=== PATIENT | female | born 1960 | race Caucasian/White ===

== ENCOUNTER 2017-08-06 18:39 | Inpatient (IN) ==
[2017-08-06] MEDS ORDERED: ASPIRIN 325 MG TABLET PO STA (19:03)
[2017-08-06] MEDS ORDERED: NITROGLYCERIN SL 0.4 MG TABLET SL PRN (19:03)
[2017-08-06] MEDS ORDERED: NITROGLYCERIN 2% OINT 1 INCH/GM PACK TOP STA (19:03)
[2017-08-06] MEDS ORDERED: MORPHINE 2 MG/1 ML SYRINGE IV PRN ×2 (19:03→21:57)
[2017-08-06] MEDS ORDERED: ENOXAPARIN 100 MG/ML SYRINGE SUBCUT STA (19:03)
[2017-08-06] MEDS ORDERED: ENOXAPARIN 100 MG/ML SYRINGE SUBCUT ONE (19:17)
[2017-08-06] MEDS ORDERED: NITROGLYCERIN 2% OINT 1 INCH/GM PACK TOP ONE (19:18)
[2017-08-06] MEDS ORDERED: ONDANSETRON 4 MG/2 ML VIAL ONE (19:18)
[2017-08-06] MEDS ORDERED: MORPHINE 2 MG/1 ML SYRINGE ONE (19:18)
[2017-08-06] MEDS ORDERED: ASPIRIN 325 MG TABLET ONE (19:18)
[2017-08-06] MEDS: ONDANSETRON 4 MG/2 ML VIAL IV PRN (19:20)
[2017-08-06 20:10] LABS: Apearance,Urine CLEAR (Clear); Basophils % 0.3 % (0.0-0.8); Bilirubin,Urine Negative (Negative); Blood, Urine Small mg/dL (Negative); Eosinophils # 0.1 10*3/uL (0.0-0.87); Eosinophils % 1.1 % (0.00-10.9); Glucose,Urine (UA) Negative (Negative); Hematocrit 37.4 VOL% (35.7-47.0); Hemoglobin 13.2 GM/DL (12.0-16.0); Immature Granulocytes % 0.3 %; Immature Granulocytes Absolute 0.03 #; Ketones,Urine Negative (Negative); Lymphocytes # 2.8 10*3/uL (1.4-4.0); Lymphocytes % 28.1 % (21.3-54.2); Mean Corpuscular HGB Conc 35.3 GM/DL (32-36); Mean Corpuscular Hemoglobin 32 PG (27-34); Mean Corpuscular Volume 91.9 FL (87-102); Mean Platelet Volume 8.6 FL (9.6-12.0); Monocytes # 0.6 10*3/uL (0.11-0.8); Monocytes % 6.1 % (1.7-12.7); Neutrophils # 6.5 10*3/uL (1.4-7.4); Neutrophils % 64.1 % (38.7-73.9); Nitrite,Urine Negative (Negative); Platelet Count 278 T/CUMM (130-400); Protein,Urine Negative; RBC,Urine <1 /HPF (0-4); Red Blood Count 4.07 MC/CUMM (3.8-5.5); Red Cell Distribution Width 13.9 % (9.3-17.3); Squamous Epithelial Cell,Urine Occasional /HPF (0-10); Urine Color Straw (Yellow); Urine Specific Gravity 1.003 (1.001-1.035); Urine Urobilinogen < 2.0 EU/DL (0.2-1.0); WBC,Urine 1 /HPF (0-6); White Blood Count 10.1 T/CUMM (4-12)
[2017-08-06 20:21] LABS: PT Patient Result 10.3 SECS
[2017-08-06 20:36] LABS: Albumin 4.2 G/DL (3.4-5.0); Bilirubin,Total 0.4 MG/DL (0.2-1.0); Calcium 9.1 MG/DL (8.5-10.1); Osmolality,Calculated 248.6 MOS/KG (273-304); Potassium 4.4 MMOL/L (3.5-5.1); Total Protein 7.4 G/DL (6.4-8.3)
[2017-08-06] MEDS ORDERED: ALUM/MAG/SIMETH/LIDO VISC 1:1 30 ML BOTTLE PO STA (21:50)
[2017-08-06] MEDS ORDERED: ONDANSETRON 4 MG/2 ML VIAL IV PRN (21:57)
[2017-08-06] MEDS ORDERED: ALUM/MAG/SIMETH/LIDO VISC 1:1 30 ML BOTTLE PO ONE (22:16)
[2017-08-06] MEDS ORDERED: MELOXICAM 7.5 MG TABLET PO PRN (23:18)
[2017-08-06] MEDS: CLORAZEPATE 7.5 MG TABLET PO SCH (23:54)
[2017-08-06] MEDS: LOVASTATIN 20 MG TABLET PO SCH (23:54)
[2017-08-06] MEDS: POTASSIUM CHLORIDE 20 MEQ TABLET PO SCH (23:54)
[2017-08-06] MEDS: ALLOPURINOL 300 MG TABLET PO SCH (23:54)
[2017-08-06] MEDS: SPIRONOLACTONE 100 MG TABLET PO SCH (23:54)
[2017-08-07] MEDS: SODIUM CHLORIDE 0.9% 1,000 ML IV SCH ×4 (00:04→23:00)
[2017-08-07 01:36] LABS: Basophils % 0.3 % (0.0-0.8); Eosinophils # 0.1 10*3/uL (0.0-0.87); Eosinophils % 1.3 % (0.00-10.9); Hematocrit 35.2 VOL% (35.7-47.0); Hemoglobin 12.2 GM/DL (12.0-16.0); Immature Granulocytes % 0.3 %; Immature Granulocytes Absolute 0.03 #; Lymphocytes # 2.8 10*3/uL (1.4-4.0); Lymphocytes % 31.9 % (21.3-54.2); Mean Corpuscular HGB Conc 34.7 GM/DL (32-36); Mean Corpuscular Hemoglobin 32 PG (27-34); Mean Corpuscular Volume 92.1 FL (87-102); Mean Platelet Volume 8.8 FL (9.6-12.0); Monocytes # 0.6 10*3/uL (0.11-0.8); Monocytes % 6.7 % (1.7-12.7); Neutrophils # 5.1 10*3/uL (1.4-7.4); Neutrophils % 59.5 % (38.7-73.9); Platelet Count 280 T/CUMM (130-400); Red Blood Count 3.82 MC/CUMM (3.8-5.5); Red Cell Distribution Width 13.8 % (9.3-17.3); White Blood Count 8.6 T/CUMM (4-12)
[2017-08-07] MEDS ORDERED: LISINOPRIL 20 MG TABLET PO SCH (09:00)
[2017-08-07] MEDS ORDERED: Atomoxetine Hcl [Strattera] 80 MG PO SCH (09:00)
[2017-08-07 09:53] LABS: Calcium 9.1 MG/DL (8.5-10.1); Osmolality,Calculated 255.2 MOS/KG (273-304); Potassium 4.2 MMOL/L (3.5-5.1)
[2017-08-07 09:54] LABS: Risk Ratio 4.4; VLDL CHOLESTEROL 26.6 MG/DL
[2017-08-07] MEDS: POTASSIUM CHLORIDE 20 MEQ TABLET PO SCH (10:04)
[2017-08-07] MEDS: SPIRONOLACTONE 100 MG TABLET PO SCH (10:04)
[2017-08-07] MEDS: DULoxetine 30 MG CAPSULE PO SCH ×2 (10:04→15:02)
[2017-08-07] MEDS: CHOLECALCIFEROL 1,000 UNIT TABLET PO SCH (10:04)
[2017-08-07] MEDS: PANTOPRAZOLE 40 MG TABLET PO SCH (10:04)
[2017-08-07] MEDS: ALLOPURINOL 300 MG TABLET PO SCH ×2 (10:05→21:18)
[2017-08-07] MEDS: LEVOTHYROXINE 50 MCG TABLET PO SCH (10:05)
[2017-08-07] MEDS: CLORAZEPATE 7.5 MG TABLET PO SCH ×2 (10:05→23:00)
[2017-08-07] MEDS: LOSARTAN 50 MG TABLET PO SCH (10:05)
[2017-08-07] MEDS: GABAPENTIN 300 MG CAPSULE PO SCH ×3 (10:05→15:04)
[2017-08-07] MEDS: MULTIVITAMIN (CENTRUM) TABLET PO SCH (10:05)
[2017-08-07] MEDS: FUROSEMIDE 20 MG TABLET PO SCH (10:05)
[2017-08-07] MEDS ORDERED: SIMETHICONE CHEW 125 MG TABLET PO PRN (13:51)
[2017-08-07] MEDS: ALUMINUM/MAGNES/SIMETH MAX STR 30 ML UDCUP PO PRN (15:02)
[2017-08-07] MEDS ORDERED: ENOXAPARIN 40 MG/0.4 ML SYRINGE SUBCUT SCH (21:00)
[2017-08-07] MEDS: LOVASTATIN 20 MG TABLET PO SCH (21:18)
[2017-08-07] MEDS: Lurasidone Hcl [Latuda] 120 MG PO SCH (22:39)
[2017-08-07] MEDS: ONDANSETRON 4 MG/2 ML VIAL IV PRN (22:39)
[2017-08-08 05:23] LABS: Calcium 7.9 MG/DL (8.5-10.1); Osmolality,Calculated 264.5 MOS/KG (273-304); Potassium 5.4 MMOL/L (3.5-5.1)
[2017-08-08 05:46] LABS: Free T4 (Free Thyroxine) 0.97 NG/DL (0.76-1.46); Thyroid Stimulating Hormone 0.904 uIU/ml (0.358-3.74)
[2017-08-08] MEDS: SODIUM CHLORIDE 0.9% 1,000 ML IV SCH ×3 (07:05→22:44)
[2017-08-08] MEDS: PANTOPRAZOLE 40 MG TABLET PO SCH (08:55)
[2017-08-08] MEDS: ALUMINUM/MAGNES/SIMETH MAX STR 30 ML UDCUP PO PRN (08:55)
[2017-08-08] MEDS: ALLOPURINOL 300 MG TABLET PO SCH ×2 (08:56→22:52)
[2017-08-08] MEDS: MULTIVITAMIN (CENTRUM) TABLET PO SCH (08:56)
[2017-08-08] MEDS: CLORAZEPATE 7.5 MG TABLET PO SCH ×2 (08:56→22:40)
[2017-08-08] MEDS: DULoxetine 30 MG CAPSULE PO SCH (08:56)
[2017-08-08] MEDS: CHOLECALCIFEROL 1,000 UNIT TABLET PO SCH (08:56)
[2017-08-08] MEDS: FUROSEMIDE 20 MG TABLET PO SCH (08:57)
[2017-08-08] MEDS: LOSARTAN 50 MG TABLET PO SCH (08:57)
[2017-08-08] MEDS: LEVOTHYROXINE 50 MCG TABLET PO SCH (08:57)
[2017-08-08] MEDS ORDERED: ALUM/MAG/SIMETH/LIDO VISC 1:1 30 ML BOTTLE PO ONE (13:43)
[2017-08-08] MEDS: PANTOPRAZOLE 40 MG VIAL IV SCH (14:32)
[2017-08-08] MEDS: ACETAMINOPHEN 325 MG TABLET PO PRN ×2 (14:33→22:40)
[2017-08-08] MEDS: Lurasidone Hcl [Latuda] 120 MG PO SCH (22:45)
[2017-08-09 06:29] LABS: Calcium 8.3 MG/DL (8.5-10.1); Osmolality,Calculated 274.8 MOS/KG (273-304); Potassium 4.6 MMOL/L (3.5-5.1)
[2017-08-09] MEDS: SODIUM CHLORIDE 0.9% 1,000 ML IV SCH (07:28)
[2017-08-09 07:35] LABS: Calcium 8.1 MG/DL (8.5-10.1); Osmolality,Calculated 274.8 MOS/KG (273-304); Potassium 4.7 MMOL/L (3.5-5.1)
[2017-08-09] MEDS ORDERED: PROPOFOL 200 MG/20 ML VIAL IV ONE (09:19)
[2017-08-09] MEDS ORDERED: LIDOCAINE 100 MG/5 ML SYRINGE ONE (09:19)
[2017-08-09] MEDS: CHOLECALCIFEROL 1,000 UNIT TABLET PO SCH (11:49)
[2017-08-09] MEDS: LEVOTHYROXINE 50 MCG TABLET PO SCH (11:49)
[2017-08-09] MEDS: CLORAZEPATE 7.5 MG TABLET PO SCH ×2 (11:50→23:00)
[2017-08-09] MEDS: ACETAMINOPHEN 325 MG TABLET PO PRN (11:50)
[2017-08-09] MEDS: MULTIVITAMIN (CENTRUM) TABLET PO SCH (11:50)
[2017-08-09] MEDS: DULoxetine 30 MG CAPSULE PO SCH (11:50)
[2017-08-09] MEDS: ALLOPURINOL 300 MG TABLET PO SCH ×2 (11:50→23:00)
[2017-08-09] MEDS: PANTOPRAZOLE 40 MG VIAL IV SCH (11:57)
[2017-08-09] MEDS: Lurasidone Hcl [Latuda] 120 MG PO SCH (23:00)
[2017-08-10 05:17] LABS: Calcium 8.5 MG/DL (8.5-10.1); Osmolality,Calculated 273.7 MOS/KG (273-304); Potassium 4.2 MMOL/L (3.5-5.1)
[2017-08-10] MEDS: CLORAZEPATE 7.5 MG TABLET PO SCH (10:14)
[2017-08-10] MEDS: DULoxetine 30 MG CAPSULE PO SCH (10:14)
[2017-08-10] MEDS: CHOLECALCIFEROL 1,000 UNIT TABLET PO SCH (10:14)
[2017-08-10] MEDS: ALLOPURINOL 300 MG TABLET PO SCH ×2 (10:15→20:39)
[2017-08-10] MEDS: LEVOTHYROXINE 50 MCG TABLET PO SCH (10:15)
[2017-08-10] MEDS: MULTIVITAMIN (CENTRUM) TABLET PO SCH (10:15)
[2017-08-10] MEDS: PANTOPRAZOLE 40 MG TABLET PO SCH ×2 (10:16→18:18)
[2017-08-10] MEDS ORDERED: ALUM/MAG/SIMETH/LIDO VISC 1:1 30 ML BOTTLE PO ONE (12:30)
[2017-08-10] MEDS: SIMETHICONE CHEW 125 MG TABLET PO SCH ×3 (13:04→20:41)
[2017-08-10] MEDS: METOCLOPRAMIDE 5 MG TABLET PO SCH ×2 (16:15→20:40)
[2017-08-10] MEDS: ACETAMINOPHEN 325 MG TABLET PO PRN (20:39)
[2017-08-10] MEDS: CLORAZEPATE 3.75 MG TABLET PO SCH (20:42)
[2017-08-10] MEDS: Lurasidone Hcl [Latuda] 120 MG PO SCH (22:25)
[2017-08-11] MEDS: PANTOPRAZOLE 40 MG TABLET PO SCH (07:45)
[2017-08-11] MEDS: METOCLOPRAMIDE 5 MG TABLET PO SCH ×2 (07:45→12:18)
[2017-08-11] MEDS: CHOLECALCIFEROL 1,000 UNIT TABLET PO SCH (10:03)
[2017-08-11] MEDS: SIMETHICONE CHEW 125 MG TABLET PO SCH ×2 (10:03→12:18)
[2017-08-11] MEDS: MULTIVITAMIN (CENTRUM) TABLET PO SCH (10:04)
[2017-08-11] MEDS: CLORAZEPATE 3.75 MG TABLET PO SCH (10:04)
[2017-08-11] MEDS: LEVOTHYROXINE 50 MCG TABLET PO SCH (10:04)
[2017-08-11] MEDS: ALLOPURINOL 300 MG TABLET PO SCH (10:04)
[2017-08-11] MEDS: DULoxetine 30 MG CAPSULE PO SCH (10:05)
[2017-08-11 11:41] VITALS: BP 119/63
[2017-08-11] MEDS: ACETAMINOPHEN 325 MG TABLET PO PRN (13:43)
[2017-08-13] MEDS ORDERED: NON-FORMULARY MEDICATION (Alendronate [Fosamax] 70 MG) PO SCH (07:30)
== END 2017-08-11 15:56 | disposition home or self-care (01) | DRG 241 ==
LOC: N.EDINP 18:39 → N.ED 18:39 → N.TELES 21:35 → SUATTDRO 08-07 12:10
PROVIDERS: ADMIT Internal Medicine; ATTEND Internal Medicine Nephrology

== ENCOUNTER 2018-04-04 00:46 | Observation (INO) ==
[2018-04-04 01:34] LABS: Alanine Aminotransferase 28 U/L (13-56); Albumin 3.9 G/DL (3.4-5.0); Alkaline Phosphatase 146 U/L (45-117); Aspartate Amino Transferase 23 U/L (0-37); Blood Urea Nitrogen 5 MG/DL (7-18); Glucose 113 MG/DL (74-106); Osmolality,Calculated 270.8 MOS/KG (273-304); Potassium 3.1 MMOL/L (3.5-5.1); Sodium 137 MMOL/L (136-145); Total Protein 7.1 G/DL (6.4-8.3)
[2018-04-04 02:00] LABS: Basophils % 0.3 % (0.0-0.8); Eosinophils % 0.6 % (0.00-10.9); Hematocrit 36.7 VOL% (35.7-47.0); Hemoglobin 12.3 GM/DL (12.0-16.0); Immature Granulocytes % 0.3 %; Immature Granulocytes Absolute 0.02 #; Lymphocytes # 1.9 10*3/uL (1.4-4.0); Lymphocytes % 26.3 % (21.3-54.2); Mean Corpuscular HGB Conc 33.5 GM/DL (32-36); Mean Corpuscular Hemoglobin 30 PG (27-34); Mean Corpuscular Volume 88.6 FL (87-102); Mean Platelet Volume 8.5 FL (9.6-12.0); Monocytes # 0.8 10*3/uL (0.11-0.8); Monocytes % 10.6 % (1.7-12.7); Neutrophils # 4.4 10*3/uL (1.4-7.4); Neutrophils % 61.9 % (38.7-73.9); Platelet Count 276 T/CUMM (130-400); Red Blood Count 4.14 MC/CUMM (3.8-5.5); Red Cell Distribution Width 13.9 % (9.3-17.3); White Blood Count 7.2 T/CUMM (4-12)
[2018-04-04 05:05] LABS: Barbiturates Screen,Urine Negative (Negative); Benzodiazepines Screen,Urine Positive (Negative); Cannabinoid Screen,Urine Negative (Negative); Opiate Screen,Urine Negative (Negative); Phencyclidine Screen,Urine Negative (Negative)
[2018-04-04] MEDS ORDERED: ZIPRASIDONE 20 MG/1 ML VIAL IM ONE ×2 (07:59→08:00)
[2018-04-04] MEDS ORDERED: HALOPERIDOL 5 MG/ML AMP ONE (08:58)
[2018-04-04] MEDS ORDERED: LORazepam 2 MG/1 ML VIAL ONE (08:58)
[2018-04-04] MEDS ORDERED: diphenhydrAMINE 50 MG/1 ML VIAL ONE (08:59)
[2018-04-04] MEDS ORDERED: diphenhydrAMINE CAP 25 MG CAPSULE PO PRN (10:03)
[2018-04-04] MEDS ORDERED: ONDANSETRON 4 MG/2 ML VIAL IV PRN (10:03)
[2018-04-04] MEDS ORDERED: DOCUSATE SODIUM 100 MG CAPSULE PO PRN (10:03)
[2018-04-04] MEDS ORDERED: ACETAMINOPHEN 325 MG TABLET PO PRN ×2 (10:03)
[2018-04-04] MEDS ORDERED: POTASSIUM CHLORIDE 20 MEQ TABLET PO ONE (10:09)
[2018-04-04] MEDS ORDERED: ATOMOXETINE HCL 80 MG PO SCH (10:15)
[2018-04-04] MEDS ORDERED: FUROSEMIDE 40 MG TABLET PO SCH (10:30)
[2018-04-04] MEDS ORDERED: NICOTINE 21 MG/24 HR PATCH TRANSDERM PRN (11:00)
[2018-04-04] MEDS ORDERED: LURASIDONE 60 MG TABLET PO SCH (12:00)
[2018-04-04 16:32] VITALS: BP 163/88
[2018-04-04] MEDS: SPIRONOLACTONE 50 MG TABLET PO SCH ×2 (16:33→22:44)
[2018-04-04] MEDS: LOSARTAN 50 MG TABLET PO SCH (16:33)
[2018-04-04] MEDS: POTASSIUM CHLORIDE 20 MEQ TABLET PO SCH ×2 (16:33→22:44)
[2018-04-04] MEDS: ENOXAPARIN 40 MG/0.4 ML SYRINGE SUBCUT SCH (16:34)
[2018-04-04] MEDS: METOCLOPRAMIDE 10 MG/10 ML UDCUP PO SCH ×3 (16:34→22:45)
[2018-04-04] MEDS: CHOLECALCIFEROL 1,000 UNIT TABLET PO SCH (16:35)
[2018-04-04] MEDS: MULTIVITAMIN (CENTRUM) TABLET PO SCH (16:35)
[2018-04-04] MEDS: DULoxetine 30 MG CAPSULE PO SCH (16:35)
[2018-04-04] MEDS: LOVASTATIN 20 MG TABLET PO SCH (16:35)
[2018-04-04] MEDS: PANTOPRAZOLE 40 MG TABLET PO SCH (16:36)
[2018-04-04] MEDS: ALLOPURINOL 300 MG TABLET PO SCH (16:36)
[2018-04-04] MEDS: CLORAZEPATE 3.75 MG TABLET PO SCH ×2 (16:36→22:45)
[2018-04-04] MEDS: LEVOTHYROXINE 50 MCG TABLET PO SCH (16:36)
[2018-04-04] MEDS: LISINOPRIL 20 MG TABLET PO SCH (16:36)
[2018-04-04] MEDS: ZIPRASIDONE 20 MG/1 ML VIAL IM PRN (19:48)
[2018-04-05] MEDS: ZIPRASIDONE 20 MG/1 ML VIAL IM PRN ×2 (02:20→09:07)
[2018-04-05] MEDS: METOCLOPRAMIDE 10 MG/10 ML UDCUP PO SCH ×2 (09:10→11:18)
[2018-04-05] MEDS: LURASIDONE 40 MG TABLET PO SCH ×2 (09:11→13:41)
[2018-04-05] MEDS: SPIRONOLACTONE 50 MG TABLET PO SCH (09:11)
[2018-04-05] MEDS: LISINOPRIL 20 MG TABLET PO SCH (09:11)
[2018-04-05] MEDS: DULoxetine 30 MG CAPSULE PO SCH ×2 (09:11→13:42)
[2018-04-05] MEDS: LOSARTAN 50 MG TABLET PO SCH (09:11)
[2018-04-05] MEDS: PANTOPRAZOLE 40 MG TABLET PO SCH (09:11)
[2018-04-05] MEDS: LOVASTATIN 20 MG TABLET PO SCH (09:11)
[2018-04-05] MEDS: LEVOTHYROXINE 50 MCG TABLET PO SCH (09:11)
[2018-04-05] MEDS: POTASSIUM CHLORIDE 20 MEQ TABLET PO SCH (09:11)
[2018-04-05] MEDS: CHOLECALCIFEROL 1,000 UNIT TABLET PO SCH (09:12)
[2018-04-05] MEDS: CLORAZEPATE 3.75 MG TABLET PO SCH ×2 (09:12→13:42)
[2018-04-05] MEDS: ALLOPURINOL 300 MG TABLET PO SCH (09:12)
[2018-04-05] MEDS: MULTIVITAMIN (CENTRUM) TABLET PO SCH (09:13)
[2018-04-05] MEDS: ENOXAPARIN 40 MG/0.4 ML SYRINGE SUBCUT SCH (11:18)
[2018-04-05] MEDS ORDERED: HALOPERIDOL 5 MG/ML AMP IM ONE (11:37)
[2018-04-08] MEDS ORDERED: ALENDRONATE 70 MG PO SCH (07:30)
== END 2018-04-05 14:50 ==
LOC: EDUNIT# → EDBD → N.ED 00:46 → N.EDINP 00:46 → N.5E 09:14
PROVIDERS: ADMIT Internal Medicine; ATTEND Internal Medicine

== ENCOUNTER 2018-11-01 19:27 | Observation (INO) ==
[2018-11-01 21:19] LABS: Basophils % 0.3 % (0.0-0.8); Eosinophils % 0.5 % (0.00-10.9); Hematocrit 35.4 VOL% (35.7-47.0); Hemoglobin 11.6 GM/DL (12.0-16.0); Immature Granulocytes % 0.2 %; Immature Granulocytes Absolute 0.02 #; Lymphocytes # 2.5 10*3/uL (1.4-4.0); Mean Corpuscular HGB Conc 32.8 GM/DL (32-36); Mean Corpuscular Hemoglobin 30 PG (27-34); Mean Corpuscular Volume 90.5 FL (87-102); Monocytes # 0.7 10*3/uL (0.11-0.8); Monocytes % 7.7 % (1.7-12.7); Neutrophils # 5.4 10*3/uL (1.4-7.4); Neutrophils % 62.3 % (38.7-73.9); Platelet Count 366 T/CUMM (130-400); Red Blood Count 3.91 MC/CUMM (3.8-5.5); Red Cell Distribution Width 15.7 % (9.3-17.3); White Blood Count 8.7 T/CUMM (4-12)
[2018-11-01 21:51] LABS: Alanine Aminotransferase 18 U/L (13-56); Albumin 3.6 G/DL (3.4-5.0); Alkaline Phosphatase 183 U/L (45-117); Aspartate Amino Transferase 17 U/L (0-37); Blood Urea Nitrogen 8 MG/DL (7-18); Glucose 96 MG/DL (74-106); Osmolality,Calculated 261.5 MOS/KG (273-304); Sodium 132 MMOL/L (136-145); Total Protein 7.4 G/DL (6.4-8.3)
[2018-11-01 22:06] LABS: Calcium 9.1 MG/DL (8.5-10.1)
[2018-11-01] MEDS ORDERED: POTASSIUM CHLORIDE 20 MEQ TABLET PO ONE (22:07)
[2018-11-01] MEDS ORDERED: POTASSIUM CHLORIDE RIDER 20 MEQ in PREMIX 1 EACH IV STA (22:32)
[2018-11-01] MEDS ORDERED: POTASSIUM CHLORIDE 20 MEQ TABLET PO STA (22:33)
[2018-11-01] MEDS ORDERED: POTASSIUM CHLORIDE RIDER 10 MEQ in PREMIX 1 EACH IV ONE (22:38)
[2018-11-01] MEDS ORDERED: ONDANSETRON 4 MG/2 ML VIAL IV PRN (23:38)
[2018-11-01] MEDS ORDERED: DOCUSATE SODIUM 100 MG CAPSULE PO PRN (23:38)
[2018-11-01] MEDS ORDERED: ACETAMINOPHEN 325 MG TABLET PO PRN (23:38)
[2018-11-01] MEDS ORDERED: HALOPERIDOL 5 MG/ML AMP IM PRN (23:45)
[2018-11-01] MEDS ORDERED: diphenhydrAMINE 50 MG/1 ML VIAL IM PRN (23:45)
[2018-11-01] MEDS ORDERED: traZODone 50 MG TABLET PO SCH (23:45)
[2018-11-01] MEDS ORDERED: LORazepam 2 MG/1 ML VIAL IM PRN (23:45)
[2018-11-01] MEDS ORDERED: MAGNESIUM SULF RIDER 4 GM in PREMIX 1 EACH IV PRN (23:49)
[2018-11-01] MEDS ORDERED: MAGNESIUM SULF RIDER 2 GM in PREMIX 1 EACH IV PRN (23:49)
[2018-11-02 00:33] LABS: Apearance,Urine CLEAR (Clear); Bacteria,Urine Occasional /HPF (Few); Bilirubin,Urine Negative (Negative); Blood, Urine Small mg/dL (Negative); Glucose,Urine (UA) Negative (Negative); Hyaline Casts,Urine 1 /LPF (0-3); Ketones,Urine Negative (Negative); Nitrite,Urine Negative (Negative); Protein,Urine Negative; RBC,Urine 1 /HPF (0-4); Squamous Epithelial Cell,Urine Occasional /HPF (0-10); Urine Color Straw (Yellow); Urine Specific Gravity 1.002 (1.001-1.035); Urine Urobilinogen < 2.0 EU/DL (0.2-1.0); WBC,Urine 1 /HPF (0-6)
[2018-11-02 00:40] LABS: Barbiturates Screen,Urine Negative (Negative); Benzodiazepines Screen,Urine Negative (Negative); Cannabinoid Screen,Urine Negative (Negative); Opiate Screen,Urine Positive (Negative); Phencyclidine Screen,Urine Negative (Negative)
[2018-11-02 02:34] LABS: Basophils % 0.5 % (0.0-0.8); Eosinophils # 0.1 10*3/uL (0.0-0.87); Eosinophils % 1.2 % (0.00-10.9); Hemoglobin 11.3 GM/DL (12.0-16.0); Immature Granulocytes % 0.3 %; Immature Granulocytes Absolute 0.02 #; Lymphocytes # 2.7 10*3/uL (1.4-4.0); Lymphocytes % 36.3 % (21.3-54.2); Mean Corpuscular HGB Conc 32.3 GM/DL (32-36); Mean Corpuscular Hemoglobin 29 PG (27-34); Mean Platelet Volume 8.9 FL (9.6-12.0); Monocytes # 0.6 10*3/uL (0.11-0.8); Monocytes % 7.7 % (1.7-12.7); Neutrophils # 4.1 10*3/uL (1.4-7.4); Platelet Count 389 T/CUMM (130-400); Red Blood Count 3.89 MC/CUMM (3.8-5.5); Red Cell Distribution Width 15.7 % (9.3-17.3); White Blood Count 7.5 T/CUMM (4-12)
[2018-11-02 02:47] LABS: Calcium 8.6 MG/DL (8.5-10.1)
[2018-11-02 02:48] LABS: Potassium 2.3 MMOL/L (3.5-5.1)
[2018-11-02] MEDS: POTASSIUM CHLORIDE 20 MEQ TABLET PO PRN ×3 (02:52→07:00)
[2018-11-02] MEDS: ENOXAPARIN 40 MG/0.4 ML SYRINGE SUBCUT SCH (02:55)
[2018-11-02] MEDS: SODIUM CHLORIDE 0.9% 1,000 ML IV SCH ×4 (03:23→17:46)
[2018-11-02] MEDS: LEVOTHYROXINE 50 MCG TABLET PO SCH (06:59)
[2018-11-02] MEDS: LOSARTAN 50 MG TABLET PO SCH (08:16)
[2018-11-02] MEDS: DULoxetine 30 MG CAPSULE PO SCH (08:16)
[2018-11-02] MEDS: ALLOPURINOL 300 MG TABLET PO SCH (08:17)
[2018-11-02] MEDS: PANTOPRAZOLE 40 MG TABLET PO SCH (08:17)
[2018-11-02] MEDS ORDERED: BENZTROPINE 1 MG TABLET PO SCH (09:00)
[2018-11-02] MEDS ORDERED: DULoxetine 30 MG CAPSULE PO SCH (09:00)
[2018-11-02] MEDS ORDERED: LISINOPRIL 20 MG TABLET PO SCH (09:00)
[2018-11-02] MEDS ORDERED: SPIRONOLACTONE 100 MG TABLET PO SCH (09:00)
[2018-11-02] MEDS ORDERED: SIMVASTATIN 10 MG TABLET PO SCH (09:00)
[2018-11-02] MEDS ORDERED: POTASSIUM CHLORIDE 20 MEQ TABLET PO SCH (09:00)
[2018-11-02] MEDS ORDERED: busPIRone 5 MG TABLET PO SCH (09:00)
[2018-11-02] MEDS ORDERED: risperiDONE 1 MG TABLET PO SCH (09:00)
[2018-11-02] MEDS ORDERED: Alendronate Sodium [Alendronate Sodium] 70 MG PO SCH (09:00)
[2018-11-02] MEDS: POTASSIUM CHLORIDE 20 MEQ TABLET PO SCH ×4 (10:50→21:55)
[2018-11-02] MEDS: CARVEDILOL 6.25 MG TABLET PO SCH ×2 (10:50→17:18)
[2018-11-02] MEDS: CHOLECALCIFEROL 1,000 UNIT TABLET PO SCH (10:50)
[2018-11-02 13:06] LABS: Potassium 1.9 MMOL/L (3.5-5.1)
[2018-11-02] MEDS: NICOTINE 14 MG/24 HR PATCH TRANSDERM SCH (17:18)
[2018-11-03] MEDS: POTASSIUM CHLORIDE 20 MEQ TABLET PO SCH ×2 (01:50→06:43)
[2018-11-03] MEDS: ENOXAPARIN 40 MG/0.4 ML SYRINGE SUBCUT SCH (01:50)
[2018-11-03] MEDS: SODIUM CHLORIDE 0.9% 1,000 ML IV SCH (03:53)
[2018-11-03] MEDS: LEVOTHYROXINE 50 MCG TABLET PO SCH (06:43)
[2018-11-03 07:46] LABS: Calcium 8.4 MG/DL (8.5-10.1); Osmolality,Calculated 284.7 MOS/KG (273-304); Potassium 3.4 MMOL/L (3.5-5.1)
[2018-11-03] MEDS: CHOLECALCIFEROL 1,000 UNIT TABLET PO SCH (10:06)
[2018-11-03] MEDS: DULoxetine 30 MG CAPSULE PO SCH (10:06)
[2018-11-03] MEDS: LOSARTAN 50 MG TABLET PO SCH (10:06)
[2018-11-03] MEDS: CARVEDILOL 6.25 MG TABLET PO SCH (10:07)
[2018-11-03] MEDS: PANTOPRAZOLE 40 MG TABLET PO SCH (10:07)
[2018-11-03] MEDS: NICOTINE 14 MG/24 HR PATCH TRANSDERM SCH (10:07)
[2018-11-03] MEDS: ALLOPURINOL 300 MG TABLET PO SCH (10:08)
[2018-11-03] MEDS ORDERED: LEVOTHYROXINE 50 MCG TABLET PO ONE (10:30)
[2018-11-03] MEDS ORDERED: POTASSIUM CHLORIDE 20 MEQ TABLET PO ONE (11:19)
[2018-11-03 15:40] VITALS: BP 147/67
[2018-11-03] MEDS ORDERED: POTASSIUM CHLORIDE 20 MEQ TABLET PO SCH (21:00)
== END 2018-11-03 16:20 | disposition home or self-care (01) ==
LOC: N.EDINP 19:27 → N.ED 19:27 → N.3E 11-02 01:20
PROVIDERS: ADMIT Hospitalist; ATTEND Hospitalist

== ENCOUNTER 2019-09-25 16:42 | Observation (INO) ==
[2019-09-25 18:18] LABS: Basophils % 0.5 % (0.0-0.8); Eosinophils # 0.1 10*3/uL (0.0-0.87); Eosinophils % 1.8 % (0.00-10.9); Hematocrit 34.3 VOL% (35.7-47.0); Hemoglobin 10.7 GM/DL (12.0-16.0); Lymphocytes # 1.6 10*3/uL (1.4-4.0); Lymphocytes % 35.6 % (21.3-54.2); Mean Corpuscular HGB Conc 31.2 GM/DL (32-36); Mean Corpuscular Volume 95.3 FL (87-102); Mean Platelet Volume 8.6 FL (9.6-12.0); Monocytes % 13.5 % (1.7-12.7); Neutrophils % 48.6 % (38.7-73.9); Platelet Count 264 T/CUMM (130-400); Red Cell Distribution Width 14.6 % (9.3-17.3); White Blood Count 4.4 T/CUMM (4-12)
[2019-09-25 18:43] LABS: Alanine Aminotransferase 16 U/L (13-56); Albumin 3.2 G/DL (3.4-5.0); Alkaline Phosphatase 116 U/L (45-117); Aspartate Amino Transferase 9 U/L (0-37); Bilirubin,Total < 0.39 MG/DL (0.2-1.0); Blood Urea Nitrogen 16 MG/DL (7-18); Calcium 8.6 MG/DL (8.5-10.1); Estimated Glom Filtration Rate 49 ML/MIN; Glucose 88 MG/DL (74-106); Osmolality,Calculated 274.7 MOS/KG (273-304); Troponin I < 0.015 NG/ML (0.00-0.045)
[2019-09-25] MEDS ORDERED: FUROSEMIDE 100 MG/10 ML VIAL IV STA (19:03)
[2019-09-25] MEDS ORDERED: ONDANSETRON 4 MG/2 ML VIAL IV PRN (20:56)
[2019-09-25] MEDS ORDERED: ACETAMINOPHEN 325 MG TABLET PO PRN (20:56)
[2019-09-25] MEDS ORDERED: MORPHINE 4 MG/1 ML VIAL IV PRN (20:56)
[2019-09-25] MEDS ORDERED: NICOTINE 21 MG/24 HR PATCH TRANSDERM PRN (20:56)
[2019-09-25] MEDS ORDERED: diphenhydrAMINE CAP 25 MG CAPSULE PO PRN (20:56)
[2019-09-25 21:32] LABS: Risk Ratio 2.25; VLDL CHOLESTEROL 27.4 MG/DL
[2019-09-25] MEDS ORDERED: ATORVASTATIN 20 MG TABLET PO ONE (23:27)
[2019-09-25] MEDS ORDERED: risperiDONE 1 MG TABLET PO ONE (23:28)
[2019-09-25] MEDS ORDERED: DIVALPROEX ER 500 MG TABLET PO ONE (23:33)
[2019-09-25] MEDS ORDERED: POTASSIUM CHLORIDE 20 MEQ TABLET PO ONE (23:34)
[2019-09-26 01:14] LABS: Apearance,Urine CLEAR (Clear); Bilirubin,Urine Negative (Negative); Blood, Urine Negative (Negative); Glucose,Urine (UA) Negative (Negative); Ketones,Urine Negative (Negative); Nitrite,Urine Negative (Negative); Protein,Urine Negative; RBC,Urine 1 /HPF (0-4); Urine Color Colorless (Yellow); Urine Specific Gravity 1.003 (1.001-1.035); Urine Urobilinogen < 2.0 EU/DL (0.2-1.0)
[2019-09-26] MEDS ORDERED: FUROSEMIDE 40 MG/4 ML VIAL IV SCH (08:00)
[2019-09-26] MEDS ORDERED: ENOXAPARIN 40 MG/0.4 ML SYRINGE SUBCUT SCH (09:00)
[2019-09-26] MEDS ORDERED: DULoxetine 30 MG CAPSULE PO SCH (09:30)
[2019-09-26] MEDS ORDERED: LOSARTAN 50 MG TABLET PO SCH (09:30)
[2019-09-26] MEDS ORDERED: CHOLECALCIFEROL 1,000 UNIT TABLET PO SCH (09:30)
[2019-09-26] MEDS ORDERED: risperiDONE 3 MG TABLET PO SCH (09:30)
[2019-09-26] MEDS ORDERED: ALLOPURINOL 300 MG TABLET PO SCH (09:30)
[2019-09-26] MEDS ORDERED: POTASSIUM CHLORIDE 20 MEQ TABLET PO SCH (09:30)
[2019-09-26] MEDS ORDERED: PANTOPRAZOLE 40 MG TABLET PO SCH (09:30)
[2019-09-26] MEDS ORDERED: DIVALPROEX 500 MG TABLET PO SCH (09:30)
[2019-09-26] MEDS ORDERED: risperiDONE 1 MG TABLET PO SCH (10:30)
[2019-09-26] MEDS ORDERED: LEVOTHYROXINE 50 MCG TABLET PO ONE (10:37)
[2019-09-26 13:06] VITALS: BP 138/63
[2019-09-26] MEDS ORDERED: ATORVASTATIN 20 MG TABLET PO SCH (21:00)
[2019-09-27] MEDS ORDERED: LEVOTHYROXINE 50 MCG TABLET PO SCH (06:30)
[2019-10-01] MEDS ORDERED: NON-FORMULARY MEDICATION (Alendronate 70 MG) PO SCH (06:30)
== END 2019-09-26 16:35 | disposition home or self-care (01) ==
LOC: N.ED 16:42 → N.EDINP 16:42 → N.2W 22:14
PROVIDERS: ADMIT Internal Medicine; ATTEND Internal Medicine

== ENCOUNTER 2021-03-26 16:57 | Inpatient (IN) ==
[2021-03-26] MEDS ORDERED: SODIUM CHLORIDE 0.9% 1,000 ML IV STA (17:17)
[2021-03-26 18:06] LABS: Basophils % 0.2 % (0.0-0.8); Eosinophils # 0.1 10*3/uL (0.0-0.87); Eosinophils % 1.1 % (0.00-10.9); Hematocrit 28.1 VOL% (35.7-47.0); Hemoglobin 8.9 GM/DL (12.0-16.0); Immature Granulocytes Absolute 0.05 #; Lymphocytes # 1.1 10*3/uL (1.4-4.0); Lymphocytes % 21.7 % (21.3-54.2); Mean Corpuscular HGB Conc 31.7 GM/DL (32-36); Mean Corpuscular Volume 95.9 FL (87-102); Mean Platelet Volume 9.9 FL (9.6-12.0); Monocytes % 8.2 % (1.7-12.7); Neutrophils % 67.8 % (38.7-73.9); Platelet Count 163 T/CUMM (130-400); Red Blood Count 2.93 MC/CUMM (3.8-5.5); Red Cell Distribution Width 16.2 % (9.3-17.3); White Blood Count 5.3 T/CUMM (4-12)
[2021-03-26 18:13] LABS: Bilirubin,Urine Negative (Negative); Blood, Urine Moderate mg/dL (Negative); Glucose,Urine (UA) Negative (Negative); Ketones,Urine Negative (Negative); Nitrite,Urine Negative (Negative); Protein,Urine Negative; Squamous Epithelial Cell,Urine Occasional /HPF (0-10); Urine Appearance CLEAR (Clear); Urine Color Straw (Yellow); Urine Specific Gravity 1.005 (1.001-1.035); Urine Urobilinogen < 2.0 EU/DL (0.2-1.0)
[2021-03-26 18:15] LABS: INR 0.9; PT Patient Result 10.6 SECS (10.5-12.0)
[2021-03-26 18:19] LABS: Barbiturates Screen,Urine Negative (Negative); Benzodiazepines Screen,Urine Negative (Negative); Cannabinoid Screen,Urine Negative (Negative); Opiate Screen,Urine Negative (Negative); Phencyclidine Screen,Urine Negative (Negative)
[2021-03-26 18:29] LABS: Albumin 2.6 G/DL (3.4-5.0); Bilirubin,Total 0.4 MG/DL (0.2-1.0); Calcium 8.4 MG/DL (8.5-10.1); Potassium 3.5 MMOL/L (3.5-5.1); Total Protein 6.1 G/DL (6.4-8.2)
[2021-03-26] MEDS ORDERED: PIPERACILLIN/TAZOBACTAM 3,375 MG in SODIUM CHLORIDE 0.9% 100 ML IV STA (19:14)
[2021-03-26] MEDS ORDERED: VANCOMYCIN INJ 1,000 MG in SODIUM CHLORIDE 0.9% 250 ML IV STA (19:14)
[2021-03-26 19:35] LABS: ABG Base Excess 2.8 MMOL/L (-2.5-2.5); ABG HCO3 26.8 MMOL/L (20-26); ABG Oxygen Saturation 94.5 % (95-100); ABG PCO2 48.8 MM HG (35-48); ABG PH 7.375 (7.35-7.45); ABG PO2 77.2 MM HG (80-95); ABG TCO2 26.5 MMOL/L (23-27)
[2021-03-26] MEDS ORDERED: DEXTROSE 50% 25 GM/50 ML VIAL IV PRN (20:20)
[2021-03-26] MEDS ORDERED: ONDANSETRON 4 MG/2 ML VIAL IV PRN (20:20)
[2021-03-26] MEDS ORDERED: diphenhydrAMINE CAP 25 MG CAPSULE PO PRN (20:20)
[2021-03-26] MEDS ORDERED: NICOTINE 21 MG/24 HR PATCH TRANSDERM PRN (20:20)
[2021-03-26] MEDS ORDERED: GLUCAGON 1 MG VIAL IM PRN (20:20)
[2021-03-26] MEDS ORDERED: guaiFENesin/DM ER 600-30 MG TABLET PO PRN (20:20)
[2021-03-26] MEDS: SODIUM CHLORIDE 0.9% 1,000 ML IV SCH (22:01)
[2021-03-27] MEDS: ALBUTEROL/IPRATROPIUM 3 ML NEB RESP TX SCH ×4 (00:50→20:02)
[2021-03-27] MEDS: PIPERACILLIN/TAZOBACTAM 3,375 MG in SODIUM CHLORIDE 0.9% 100 ML IV SCH ×3 (04:21→21:14)
[2021-03-27] MEDS: SODIUM CHLORIDE 0.9% 1,000 ML IV SCH ×2 (05:38→16:12)
[2021-03-27 06:26] LABS: Albumin 1.9 G/DL (3.4-5.0); Bilirubin,Total 0.7 MG/DL (0.2-1.0); Osmolality,Calculated 280.4 MOS/KG (273-304); Potassium 3.4 MMOL/L (3.5-5.1)
[2021-03-27 07:55] LABS: Basophils % 0.4 % (0.0-0.8); Eosinophils # 0.1 10*3/uL (0.0-0.87); Eosinophils % 1.8 % (0.00-10.9); Hematocrit 25.5 VOL% (35.7-47.0); Hemoglobin 8.2 GM/DL (12.0-16.0); Immature Granulocytes % 1.1 %; Immature Granulocytes Absolute 0.05 #; Lymphocytes % 21.1 % (21.3-54.2); Mean Corpuscular HGB Conc 32.2 GM/DL (32-36); Mean Corpuscular Volume 94.8 FL (87-102); Mean Platelet Volume 9.6 FL (9.6-12.0); Monocytes % 9.7 % (1.7-12.7); Neutrophils % 65.9 % (38.7-73.9); Platelet Count 139 T/CUMM (130-400); Red Blood Count 2.69 MC/CUMM (3.8-5.5); Red Cell Distribution Width 16.2 % (9.3-17.3); White Blood Count 4.6 T/CUMM (4-12)
[2021-03-27] MEDS: VANCOMYCIN INJ 1,500 MG in SODIUM CHLORIDE 0.9% 500 ML IV SCH ×2 (07:57→08:54)
[2021-03-27] MEDS ORDERED: AZITHROMYCIN INJ 500 MG in SODIUM CHLORIDE 0.9% 250 ML IV SCH (09:00)
[2021-03-27] MEDS: DIVALPROEX 500 MG TABLET PO SCH ×2 (09:08→21:21)
[2021-03-27] MEDS: POTASSIUM CHLORIDE 20 MEQ TABLET PO SCH ×2 (09:08→21:22)
[2021-03-27] MEDS: LEVOTHYROXINE 50 MCG TABLET PO SCH (09:09)
[2021-03-27] MEDS: FUROSEMIDE 40 MG TABLET PO SCH ×2 (09:09→21:21)
[2021-03-27] MEDS: prednisoLONE ACETATE 1% OPH SUSP 5 ML BOTTLE RIGHT EYE SCH ×4 (10:12→21:21)
[2021-03-27] MEDS ORDERED: FLUCONAZOLE 150 MG TABLET PO ONE (11:07)
[2021-03-27] MEDS: risperiDONE 1 MG TABLET PO SCH ×2 (11:54→21:21)
[2021-03-27] MEDS: ENOXAPARIN 40 MG/0.4 ML SYRINGE SUBCUT SCH (11:54)
[2021-03-27] MEDS: DULoxetine 30 MG CAPSULE PO SCH (11:54)
[2021-03-27] MEDS: NYSTATIN POWDER 15 GM BOTTLE TOP SCH ×2 (16:50→21:21)
[2021-03-27] MEDS: DEXT 5% NACL 0.9% KCL 20 MEQ 20 MEQ/1,000 ML BAG IV SCH (17:35)
[2021-03-28] MEDS: ALBUTEROL/IPRATROPIUM 3 ML NEB RESP TX SCH ×4 (01:30→19:18)
[2021-03-28] MEDS: PIPERACILLIN/TAZOBACTAM 3,375 MG in SODIUM CHLORIDE 0.9% 100 ML IV SCH ×3 (03:58→20:58)
[2021-03-28] MEDS: DEXT 5% NACL 0.9% KCL 20 MEQ 20 MEQ/1,000 ML BAG IV SCH (05:53)
[2021-03-28] MEDS: LEVOTHYROXINE 50 MCG TABLET PO SCH (05:55)
[2021-03-28 05:57] LABS: Basophils % 0.5 % (0.0-0.8); Eosinophils # 0.1 10*3/uL (0.0-0.87); Eosinophils % 1.4 % (0.00-10.9); Hematocrit 23.9 VOL% (35.7-47.0); Hemoglobin 7.6 GM/DL (12.0-16.0); Immature Granulocytes % 1.2 %; Immature Granulocytes Absolute 0.05 #; Lymphocytes # 1.1 10*3/uL (1.4-4.0); Lymphocytes % 24.4 % (21.3-54.2); Mean Corpuscular HGB Conc 31.8 GM/DL (32-36); Mean Platelet Volume 9.5 FL (9.6-12.0); Neutrophils % 62.5 % (38.7-73.9); Platelet Count 115 T/CUMM (130-400); Red Blood Count 2.49 MC/CUMM (3.8-5.5); Red Cell Distribution Width 16.6 % (9.3-17.3); White Blood Count 4.3 T/CUMM (4-12)
[2021-03-28 06:05] LABS: Calcium 7.8 MG/DL (8.5-10.1); Osmolality,Calculated 282.1 MOS/KG (273-304); Potassium 3.2 MMOL/L (3.5-5.1)
[2021-03-28 06:09] LABS: Ferritin 97.3 ng/ml (8-252)
[2021-03-28 07:54] LABS: Basophils % 0.5 % (0.0-0.8); Eosinophils # 0.1 10*3/uL (0.0-0.87); Eosinophils % 1.4 % (0.00-10.9); Hematocrit 23.9 VOL% (35.7-47.0); Hemoglobin 7.6 GM/DL (12.0-16.0); Immature Granulocytes % 1.2 %; Immature Granulocytes Absolute 0.05 #; Lymphocytes # 1.1 10*3/uL (1.4-4.0); Lymphocytes % 24.4 % (21.3-54.2); Mean Corpuscular HGB Conc 31.8 GM/DL (32-36); Mean Platelet Volume 9.5 FL (9.6-12.0); Neutrophils % 62.5 % (38.7-73.9); Platelet Count 115 T/CUMM (130-400); Red Blood Count 2.49 MC/CUMM (3.8-5.5); Red Cell Distribution Width 16.6 % (9.3-17.3); White Blood Count 4.3 T/CUMM (4-12)
[2021-03-28 08:13] LABS: Sedimentation Rate-Westergren 17 MM/HR (0-30)
[2021-03-28] MEDS: risperiDONE 1 MG TABLET PO SCH ×2 (08:45→21:05)
[2021-03-28] MEDS: ACETAMINOPHEN 325 MG TABLET PO PRN (08:46)
[2021-03-28] MEDS: DULoxetine 30 MG CAPSULE PO SCH (08:47)
[2021-03-28] MEDS: allopurinoL 300 MG TABLET PO SCH (08:47)
[2021-03-28] MEDS: VANCOMYCIN INJ 1,500 MG in SODIUM CHLORIDE 0.9% 500 ML IV SCH (08:47)
[2021-03-28] MEDS: DIVALPROEX 500 MG TABLET PO SCH ×2 (08:48→21:06)
[2021-03-28] MEDS: FUROSEMIDE 40 MG TABLET PO SCH ×2 (08:48→21:00)
[2021-03-28] MEDS: POTASSIUM CHLORIDE 20 MEQ TABLET PO SCH ×4 (08:48→21:08)
[2021-03-28] MEDS ORDERED: PNEUMOCOCCAL VACCINE (23 VALENT) 0.5 ML VIAL IM ONE (09:00)
[2021-03-28] MEDS: ENOXAPARIN 40 MG/0.4 ML SYRINGE SUBCUT SCH (09:18)
[2021-03-28] MEDS: prednisoLONE ACETATE 1% OPH SUSP 5 ML BOTTLE RIGHT EYE SCH ×4 (09:18→21:12)
[2021-03-28] MEDS: NYSTATIN POWDER 15 GM BOTTLE TOP SCH ×3 (09:19→21:12)
[2021-03-28] MEDS: MULTIVITAMIN (BEROCCA) TABLET PO SCH (09:19)
[2021-03-28 09:35] LABS: Hemoglobin A1 (Alkaline) 97.8 % (96.5-98.5); Hemoglobin A2 (Alkaline) 2.2 % (1.5-3.5)
[2021-03-28 18:41] LABS: Folate 2.88 NG/ML (5.38-24.0); Vitamin B12 313 PG/ML (211-911)
[2021-03-28] MEDS: ATORVASTATIN 20 MG TABLET PO SCH (21:00)
[2021-03-29] MEDS: ALBUTEROL/IPRATROPIUM 3 ML NEB RESP TX SCH ×4 (00:08→19:06)
[2021-03-29] MEDS: ACETAMINOPHEN 325 MG TABLET PO PRN (02:25)
[2021-03-29] MEDS: PIPERACILLIN/TAZOBACTAM 3,375 MG in SODIUM CHLORIDE 0.9% 100 ML IV SCH ×3 (05:01→21:10)
[2021-03-29] MEDS: LEVOTHYROXINE 50 MCG TABLET PO SCH (05:53)
[2021-03-29 05:56] LABS: Basophils % 0.6 % (0.0-0.8); Eosinophils # 0.1 10*3/uL (0.0-0.87); Eosinophils % 1.4 % (0.00-10.9); Hematocrit 24.2 VOL% (35.7-47.0); Hemoglobin 7.8 GM/DL (12.0-16.0); Immature Granulocytes % 1.6 %; Immature Granulocytes Absolute 0.08 #; Lymphocytes # 1.5 10*3/uL (1.4-4.0); Lymphocytes % 28.8 % (21.3-54.2); Mean Corpuscular HGB Conc 32.2 GM/DL (32-36); Mean Corpuscular Volume 95.7 FL (87-102); Mean Platelet Volume 9.6 FL (9.6-12.0); Monocytes % 8.2 % (1.7-12.7); Neutrophils % 59.4 % (38.7-73.9); Platelet Count 120 T/CUMM (130-400); Red Blood Count 2.53 MC/CUMM (3.8-5.5); Red Cell Distribution Width 16.8 % (9.3-17.3); White Blood Count 5.1 T/CUMM (4-12)
[2021-03-29 06:12] LABS: Calcium 8.5 MG/DL (8.5-10.1); Osmolality,Calculated 281.1 MOS/KG (273-304)
[2021-03-29] MEDS: prednisoLONE ACETATE 1% OPH SUSP 5 ML BOTTLE RIGHT EYE SCH ×4 (08:31→21:19)
[2021-03-29] MEDS: NYSTATIN POWDER 15 GM BOTTLE TOP SCH ×3 (08:31→21:19)
[2021-03-29] MEDS: POTASSIUM CHLORIDE 20 MEQ TABLET PO SCH ×2 (08:32→21:19)
[2021-03-29] MEDS: risperiDONE 1 MG TABLET PO SCH ×2 (08:32→21:17)
[2021-03-29] MEDS: MULTIVITAMIN (BEROCCA) TABLET PO SCH (08:32)
[2021-03-29] MEDS: DULoxetine 30 MG CAPSULE PO SCH (08:32)
[2021-03-29] MEDS: ENOXAPARIN 40 MG/0.4 ML SYRINGE SUBCUT SCH (08:32)
[2021-03-29] MEDS: allopurinoL 300 MG TABLET PO SCH (08:33)
[2021-03-29] MEDS: DIVALPROEX 500 MG TABLET PO SCH ×2 (08:33→21:18)
[2021-03-29] MEDS: FUROSEMIDE 40 MG TABLET PO SCH ×2 (08:33→21:11)
[2021-03-29] MEDS: VANCOMYCIN INJ 1,500 MG in SODIUM CHLORIDE 0.9% 500 ML IV SCH (09:34)
[2021-03-29] MEDS: ATORVASTATIN 20 MG TABLET PO SCH (21:10)
[2021-03-30] MEDS: ALBUTEROL/IPRATROPIUM 3 ML NEB RESP TX SCH ×4 (00:42→19:14)
[2021-03-30] MEDS: PIPERACILLIN/TAZOBACTAM 3,375 MG in SODIUM CHLORIDE 0.9% 100 ML IV SCH ×2 (05:47→16:45)
[2021-03-30] MEDS: LEVOTHYROXINE 50 MCG TABLET PO SCH (05:50)
[2021-03-30] MEDS: ACETAMINOPHEN 325 MG TABLET PO PRN (05:51)
[2021-03-30 06:11] LABS: Basophils % 0.6 % (0.0-0.8); Eosinophils # 0.1 10*3/uL (0.0-0.87); Eosinophils % 1.5 % (0.00-10.9); Hematocrit 24.1 VOL% (35.7-47.0); Hemoglobin 7.7 GM/DL (12.0-16.0); Immature Granulocytes % 2.1 %; Immature Granulocytes Absolute 0.11 #; Lymphocytes # 1.3 10*3/uL (1.4-4.0); Lymphocytes % 25.2 % (21.3-54.2); Mean Corpuscular Volume 95.6 FL (87-102); Mean Platelet Volume 9.5 FL (9.6-12.0); Monocytes % 9.9 % (1.7-12.7); Neutrophils % 60.7 % (38.7-73.9); Platelet Count 125 T/CUMM (130-400); Red Blood Count 2.52 MC/CUMM (3.8-5.5); Red Cell Distribution Width 16.7 % (9.3-17.3); White Blood Count 5.2 T/CUMM (4-12)
[2021-03-30 06:49] LABS: Calcium 8.5 MG/DL (8.5-10.1); Osmolality,Calculated 279.3 MOS/KG (273-304)
[2021-03-30] MEDS ORDERED: FOLIC ACID 0.4 MG TABLET PO SCH (09:00)
[2021-03-30] MEDS: risperiDONE 1 MG TABLET PO SCH ×2 (09:04→21:18)
[2021-03-30] MEDS: DULoxetine 30 MG CAPSULE PO SCH (09:04)
[2021-03-30] MEDS: ENOXAPARIN 40 MG/0.4 ML SYRINGE SUBCUT SCH (09:04)
[2021-03-30] MEDS: DIVALPROEX 500 MG TABLET PO SCH ×2 (09:05→21:19)
[2021-03-30] MEDS: allopurinoL 300 MG TABLET PO SCH (09:05)
[2021-03-30] MEDS: FUROSEMIDE 40 MG TABLET PO SCH ×2 (09:05→21:18)
[2021-03-30] MEDS: POTASSIUM CHLORIDE 20 MEQ TABLET PO SCH ×2 (09:05→21:24)
[2021-03-30] MEDS: MULTIVITAMIN (BEROCCA) TABLET PO SCH (09:05)
[2021-03-30] MEDS: NYSTATIN POWDER 15 GM BOTTLE TOP SCH ×3 (09:07→21:19)
[2021-03-30] MEDS: prednisoLONE ACETATE 1% OPH SUSP 5 ML BOTTLE RIGHT EYE SCH ×4 (09:07→21:19)
[2021-03-30] MEDS: FOLIC ACID 1 MG TABLET PO SCH (10:04)
[2021-03-30] MEDS: VANCOMYCIN INJ 1,500 MG in SODIUM CHLORIDE 0.9% 500 ML IV SCH (10:05)
[2021-03-30] MEDS: ATORVASTATIN 20 MG TABLET PO SCH (21:18)
[2021-03-30] MEDS: cephALEXin 500 MG CAPSULE PO SCH (21:19)
[2021-03-31] MEDS: ALBUTEROL/IPRATROPIUM 3 ML NEB RESP TX SCH ×4 (00:55→20:05)
[2021-03-31] MEDS: LEVOTHYROXINE 50 MCG TABLET PO SCH (06:28)
[2021-03-31] MEDS: FUROSEMIDE 40 MG TABLET PO SCH ×2 (08:47→21:41)
[2021-03-31] MEDS: FOLIC ACID 1 MG TABLET PO SCH (08:47)
[2021-03-31] MEDS: ENOXAPARIN 40 MG/0.4 ML SYRINGE SUBCUT SCH (08:47)
[2021-03-31] MEDS: DULoxetine 30 MG CAPSULE PO SCH (08:47)
[2021-03-31] MEDS: DIVALPROEX 500 MG TABLET PO SCH ×2 (08:47→21:41)
[2021-03-31] MEDS: MULTIVITAMIN (BEROCCA) TABLET PO SCH (08:48)
[2021-03-31] MEDS: allopurinoL 300 MG TABLET PO SCH (08:48)
[2021-03-31] MEDS: POTASSIUM CHLORIDE 20 MEQ TABLET PO SCH ×2 (08:48→21:41)
[2021-03-31] MEDS: cephALEXin 500 MG CAPSULE PO SCH ×2 (08:48→21:41)
[2021-03-31] MEDS: risperiDONE 1 MG TABLET PO SCH ×2 (08:48→21:41)
[2021-03-31] MEDS: NYSTATIN POWDER 15 GM BOTTLE TOP SCH ×3 (08:52→21:42)
[2021-03-31] MEDS: prednisoLONE ACETATE 1% OPH SUSP 5 ML BOTTLE RIGHT EYE SCH ×4 (08:52→21:42)
[2021-03-31] MEDS ORDERED: TUBERCULIN SKIN TEST 0.1 ML SYRINGE INTRADERM ONE (15:00)
[2021-03-31] MEDS: ATORVASTATIN 20 MG TABLET PO SCH (21:41)
[2021-04-01] MEDS: ALBUTEROL/IPRATROPIUM 3 ML NEB RESP TX SCH ×4 (01:38→20:58)
[2021-04-01] MEDS: LEVOTHYROXINE 50 MCG TABLET PO SCH (05:47)
[2021-04-01] MEDS: MULTIVITAMIN (BEROCCA) TABLET PO SCH (09:32)
[2021-04-01] MEDS: risperiDONE 1 MG TABLET PO SCH ×2 (09:32→21:22)
[2021-04-01] MEDS: POTASSIUM CHLORIDE 20 MEQ TABLET PO SCH ×2 (09:33→21:22)
[2021-04-01] MEDS: cephALEXin 500 MG CAPSULE PO SCH ×2 (09:33→21:22)
[2021-04-01] MEDS: DULoxetine 30 MG CAPSULE PO SCH (09:33)
[2021-04-01] MEDS: allopurinoL 300 MG TABLET PO SCH (09:33)
[2021-04-01] MEDS: FUROSEMIDE 40 MG TABLET PO SCH ×2 (09:33→21:23)
[2021-04-01] MEDS: FOLIC ACID 1 MG TABLET PO SCH (09:33)
[2021-04-01] MEDS: DIVALPROEX 500 MG TABLET PO SCH ×2 (09:33→21:22)
[2021-04-01] MEDS: ENOXAPARIN 40 MG/0.4 ML SYRINGE SUBCUT SCH (09:34)
[2021-04-01] MEDS: NYSTATIN POWDER 15 GM BOTTLE TOP SCH ×3 (09:39→21:23)
[2021-04-01] MEDS: prednisoLONE ACETATE 1% OPH SUSP 5 ML BOTTLE RIGHT EYE SCH ×4 (09:40→21:22)
[2021-04-01] MEDS: ATORVASTATIN 20 MG TABLET PO SCH (21:23)
[2021-04-02] MEDS: ALBUTEROL/IPRATROPIUM 3 ML NEB RESP TX SCH ×4 (00:36→19:38)
[2021-04-02 06:17] LABS: Basophils % 0.2 % (0.0-0.8); Eosinophils # 0.1 10*3/uL (0.0-0.87); Eosinophils % 0.8 % (0.00-10.9); Hematocrit 25.8 VOL% (35.7-47.0); Hemoglobin 8.1 GM/DL (12.0-16.0); Immature Granulocytes % 3.2 %; Lymphocytes # 1.1 10*3/uL (1.4-4.0); Lymphocytes % 17.1 % (21.3-54.2); Mean Corpuscular HGB Conc 31.4 GM/DL (32-36); Mean Corpuscular Volume 96.6 FL (87-102); Mean Platelet Volume 9.6 FL (9.6-12.0); Monocytes % 11.3 % (1.7-12.7); NRBC # 0.04 10*3/uL; Neutrophils % 67.4 % (38.7-73.9); Platelet Count 134 T/CUMM (130-400); Red Blood Count 2.67 MC/CUMM (3.8-5.5); Red Cell Distribution Width 16.5 % (9.3-17.3); White Blood Count 6.2 T/CUMM (4-12)
[2021-04-02 06:32] LABS: Calcium 8.6 MG/DL (8.5-10.1); Potassium 3.5 MMOL/L (3.5-5.1)
[2021-04-02] MEDS: LEVOTHYROXINE 50 MCG TABLET PO SCH (07:08)
[2021-04-02 09:08] LABS: Anisocytosis 1+; Band Neutrophils 13 % (0-10); Lymphocytes 19 % (20-55); Myelocytes 1 %; Nucleated Red Blood Cells 2 (0-5); Platelet Estimate Adequate; Segmented Neutrophils 59 % (50-85); Total Cells Counted 100
[2021-04-02 09:09] LABS: Macrocytosis Slight
[2021-04-02] MEDS: risperiDONE 1 MG TABLET PO SCH ×2 (10:44→20:49)
[2021-04-02] MEDS: POTASSIUM CHLORIDE 20 MEQ TABLET PO SCH ×2 (10:45→20:49)
[2021-04-02] MEDS: cephALEXin 500 MG CAPSULE PO SCH ×2 (10:45→20:49)
[2021-04-02] MEDS: DULoxetine 30 MG CAPSULE PO SCH (10:45)
[2021-04-02] MEDS: DIVALPROEX 500 MG TABLET PO SCH ×2 (10:45→20:49)
[2021-04-02] MEDS: FOLIC ACID 1 MG TABLET PO SCH (10:46)
[2021-04-02] MEDS: allopurinoL 300 MG TABLET PO SCH (10:46)
[2021-04-02] MEDS: MULTIVITAMIN (BEROCCA) TABLET PO SCH (10:46)
[2021-04-02] MEDS: NYSTATIN POWDER 15 GM BOTTLE TOP SCH ×3 (10:46→20:57)
[2021-04-02] MEDS: prednisoLONE ACETATE 1% OPH SUSP 5 ML BOTTLE RIGHT EYE SCH ×4 (10:46→20:49)
[2021-04-02] MEDS: ENOXAPARIN 40 MG/0.4 ML SYRINGE SUBCUT SCH (10:47)
[2021-04-02] MEDS ORDERED: hydrALAZINE 20 MG/1 ML VIAL IV PRN (13:34)
[2021-04-02] MEDS: ATORVASTATIN 20 MG TABLET PO SCH (20:50)
[2021-04-03] MEDS: ALBUTEROL/IPRATROPIUM 3 ML NEB RESP TX SCH ×4 (00:02→19:11)
[2021-04-03] MEDS: LEVOTHYROXINE 50 MCG TABLET PO SCH (05:42)
[2021-04-03 06:29] LABS: Basophils % 0.4 % (0.0-0.8); Eosinophils # 0.1 10*3/uL (0.0-0.87); Eosinophils % 1.5 % (0.00-10.9); Hematocrit 24.7 VOL% (35.7-47.0); Hemoglobin 7.8 GM/DL (12.0-16.0); Immature Granulocytes % 1.7 %; Immature Granulocytes Absolute 0.09 #; Lymphocytes # 1.1 10*3/uL (1.4-4.0); Lymphocytes % 19.9 % (21.3-54.2); Mean Corpuscular HGB Conc 31.6 GM/DL (32-36); Mean Corpuscular Volume 95.4 FL (87-102); Mean Platelet Volume 9.5 FL (9.6-12.0); Monocytes % 10.8 % (1.7-12.7); Neutrophils % 65.7 % (38.7-73.9); Platelet Count 133 T/CUMM (130-400); Red Blood Count 2.59 MC/CUMM (3.8-5.5); Red Cell Distribution Width 16.4 % (9.3-17.3); White Blood Count 5.3 T/CUMM (4-12)
[2021-04-03 06:42] LABS: Calcium 8.8 MG/DL (8.5-10.1); Osmolality,Calculated 277.5 MOS/KG (273-304); Potassium 3.7 MMOL/L (3.5-5.1)
[2021-04-03 06:54] LABS: Platelet Estimate Normal; Polychromasia Few
[2021-04-03 06:55] LABS: Anisocytosis 1+; Macrocytosis Slight
[2021-04-03] MEDS ORDERED: SODIUM CHLORIDE 0.9% 1,000 ML IV PRN (09:04)
[2021-04-03] MEDS: ENOXAPARIN 40 MG/0.4 ML SYRINGE SUBCUT SCH (10:04)
[2021-04-03] MEDS: MULTIVITAMIN (BEROCCA) TABLET PO SCH (10:05)
[2021-04-03] MEDS: POTASSIUM CHLORIDE 20 MEQ TABLET PO SCH ×2 (10:05→21:16)
[2021-04-03] MEDS: DULoxetine 30 MG CAPSULE PO SCH (10:05)
[2021-04-03] MEDS: DIVALPROEX 500 MG TABLET PO SCH ×2 (10:05→21:16)
[2021-04-03] MEDS: risperiDONE 1 MG TABLET PO SCH ×2 (10:05→21:16)
[2021-04-03] MEDS: MELOXICAM 7.5 MG TABLET PO PRN (10:05)
[2021-04-03] MEDS: FOLIC ACID 1 MG TABLET PO SCH (10:06)
[2021-04-03] MEDS: cephALEXin 500 MG CAPSULE PO SCH ×2 (10:06→21:16)
[2021-04-03] MEDS: allopurinoL 300 MG TABLET PO SCH (10:06)
[2021-04-03] MEDS: prednisoLONE ACETATE 1% OPH SUSP 5 ML BOTTLE RIGHT EYE SCH ×4 (10:07→21:17)
[2021-04-03] MEDS: NYSTATIN POWDER 15 GM BOTTLE TOP SCH ×3 (10:07→21:17)
[2021-04-03] MEDS: ATORVASTATIN 20 MG TABLET PO SCH (21:16)
[2021-04-04] MEDS: ALBUTEROL/IPRATROPIUM 3 ML NEB RESP TX SCH ×4 (00:20→19:24)
[2021-04-04 04:50] LABS: Basophils % 0.2 % (0.0-0.8); Eosinophils # 0.1 10*3/uL (0.0-0.87); Eosinophils % 1.9 % (0.00-10.9); Hematocrit 25.5 VOL% (35.7-47.0); Hemoglobin 8.3 GM/DL (12.0-16.0); Immature Granulocytes % 1.1 %; Immature Granulocytes Absolute 0.06 #; Lymphocytes # 1.3 10*3/uL (1.4-4.0); Lymphocytes % 24.5 % (21.3-54.2); Mean Corpuscular HGB Conc 32.5 GM/DL (32-36); Mean Corpuscular Volume 94.1 FL (87-102); Mean Platelet Volume 9.5 FL (9.6-12.0); Monocytes % 12.4 % (1.7-12.7); Neutrophils % 59.9 % (38.7-73.9); Platelet Count 145 T/CUMM (130-400); Red Blood Count 2.71 MC/CUMM (3.8-5.5); Red Cell Distribution Width 16.8 % (9.3-17.3); White Blood Count 5.2 T/CUMM (4-12)
[2021-04-04 05:10] LABS: Calcium 8.5 MG/DL (8.5-10.1); Osmolality,Calculated 274.7 MOS/KG (273-304); Potassium 4.1 MMOL/L (3.5-5.1)
[2021-04-04] MEDS: LEVOTHYROXINE 50 MCG TABLET PO SCH (06:17)
[2021-04-04] MEDS: risperiDONE 1 MG TABLET PO SCH ×2 (09:58→20:31)
[2021-04-04] MEDS: allopurinoL 300 MG TABLET PO SCH (09:59)
[2021-04-04] MEDS: prednisoLONE ACETATE 1% OPH SUSP 5 ML BOTTLE RIGHT EYE SCH ×4 (09:59→20:31)
[2021-04-04] MEDS: DIVALPROEX 500 MG TABLET PO SCH ×2 (09:59→20:31)
[2021-04-04] MEDS: DULoxetine 30 MG CAPSULE PO SCH (09:59)
[2021-04-04] MEDS: ENOXAPARIN 40 MG/0.4 ML SYRINGE SUBCUT SCH (09:59)
[2021-04-04] MEDS: POTASSIUM CHLORIDE 20 MEQ TABLET PO SCH ×2 (09:59→20:31)
[2021-04-04] MEDS: cephALEXin 500 MG CAPSULE PO SCH ×2 (09:59→20:31)
[2021-04-04] MEDS: FOLIC ACID 1 MG TABLET PO SCH (09:59)
[2021-04-04] MEDS: MULTIVITAMIN (BEROCCA) TABLET PO SCH (09:59)
[2021-04-04] MEDS: NYSTATIN POWDER 15 GM BOTTLE TOP SCH ×3 (10:00→20:31)
[2021-04-04] MEDS: ATORVASTATIN 20 MG TABLET PO SCH (20:31)
[2021-04-05] MEDS: ALBUTEROL/IPRATROPIUM 3 ML NEB RESP TX SCH ×4 (00:32→20:34)
[2021-04-05] MEDS: LEVOTHYROXINE 50 MCG TABLET PO SCH (06:30)
[2021-04-05] MEDS: FOLIC ACID 1 MG TABLET PO SCH (08:50)
[2021-04-05] MEDS: MULTIVITAMIN (BEROCCA) TABLET PO SCH (08:50)
[2021-04-05] MEDS: POTASSIUM CHLORIDE 20 MEQ TABLET PO SCH ×2 (08:51→20:12)
[2021-04-05] MEDS: allopurinoL 300 MG TABLET PO SCH (08:51)
[2021-04-05] MEDS: DIVALPROEX 500 MG TABLET PO SCH ×2 (08:51→20:12)
[2021-04-05] MEDS: MELOXICAM 7.5 MG TABLET PO PRN (08:51)
[2021-04-05] MEDS: ACETAMINOPHEN 325 MG TABLET PO PRN (08:51)
[2021-04-05] MEDS: DULoxetine 30 MG CAPSULE PO SCH (08:51)
[2021-04-05] MEDS: ENOXAPARIN 40 MG/0.4 ML SYRINGE SUBCUT SCH (08:52)
[2021-04-05] MEDS: prednisoLONE ACETATE 1% OPH SUSP 5 ML BOTTLE RIGHT EYE SCH ×4 (08:54→20:11)
[2021-04-05] MEDS: NYSTATIN POWDER 15 GM BOTTLE TOP SCH ×3 (08:54→20:11)
[2021-04-05] MEDS: cephALEXin 500 MG CAPSULE PO SCH ×2 (08:56→20:12)
[2021-04-05] MEDS: risperiDONE 1 MG TABLET PO SCH ×2 (08:56→20:11)
[2021-04-05] MEDS: ATORVASTATIN 20 MG TABLET PO SCH (20:12)
[2021-04-06] MEDS: ALBUTEROL/IPRATROPIUM 3 ML NEB RESP TX SCH ×4 (00:35→19:26)
[2021-04-06] MEDS: LEVOTHYROXINE 50 MCG TABLET PO SCH (06:35)
[2021-04-06] MEDS: POTASSIUM CHLORIDE 20 MEQ TABLET PO SCH ×2 (09:08→20:56)
[2021-04-06] MEDS: ACETAMINOPHEN 325 MG TABLET PO PRN (09:08)
[2021-04-06] MEDS: ENOXAPARIN 40 MG/0.4 ML SYRINGE SUBCUT SCH (09:08)
[2021-04-06] MEDS: DIVALPROEX 500 MG TABLET PO SCH ×2 (09:09→20:56)
[2021-04-06] MEDS: allopurinoL 300 MG TABLET PO SCH (09:09)
[2021-04-06] MEDS: DULoxetine 30 MG CAPSULE PO SCH (09:09)
[2021-04-06] MEDS: FOLIC ACID 1 MG TABLET PO SCH (09:09)
[2021-04-06] MEDS: MULTIVITAMIN (BEROCCA) TABLET PO SCH (09:09)
[2021-04-06] MEDS: prednisoLONE ACETATE 1% OPH SUSP 5 ML BOTTLE RIGHT EYE SCH ×4 (09:10→21:23)
[2021-04-06] MEDS: NYSTATIN POWDER 15 GM BOTTLE TOP SCH ×3 (09:10→21:23)
[2021-04-06] MEDS: cephALEXin 500 MG CAPSULE PO SCH ×2 (09:14→20:56)
[2021-04-06] MEDS: risperiDONE 1 MG TABLET PO SCH ×2 (09:49→20:56)
[2021-04-06] MEDS ORDERED: MAGNESIUM HYDROXIDE SUSP 30 ML UDCUP PO PRN (14:46)
[2021-04-06] MEDS: ATORVASTATIN 20 MG TABLET PO SCH (20:56)
[2021-04-07] MEDS: ALBUTEROL/IPRATROPIUM 3 ML NEB RESP TX SCH ×3 (00:06→14:00)
[2021-04-07] MEDS: LEVOTHYROXINE 50 MCG TABLET PO SCH (06:08)
[2021-04-07] MEDS: ENOXAPARIN 40 MG/0.4 ML SYRINGE SUBCUT SCH (09:13)
[2021-04-07] MEDS: FOLIC ACID 1 MG TABLET PO SCH (09:14)
[2021-04-07] MEDS: DIVALPROEX 500 MG TABLET PO SCH (09:14)
[2021-04-07] MEDS: MULTIVITAMIN (BEROCCA) TABLET PO SCH (09:14)
[2021-04-07] MEDS: DULoxetine 30 MG CAPSULE PO SCH (09:14)
[2021-04-07] MEDS: allopurinoL 300 MG TABLET PO SCH (09:14)
[2021-04-07] MEDS: POTASSIUM CHLORIDE 20 MEQ TABLET PO SCH (09:14)
[2021-04-07] MEDS: NYSTATIN POWDER 15 GM BOTTLE TOP SCH (09:15)
[2021-04-07] MEDS: prednisoLONE ACETATE 1% OPH SUSP 5 ML BOTTLE RIGHT EYE SCH ×2 (09:15→13:18)
[2021-04-07] MEDS: risperiDONE 1 MG TABLET PO SCH (09:16)
[2021-04-07 12:47] VITALS: BP 114/48
== END 2021-04-07 14:02 | DRG 383 ==
LOC: EDBD → EDUNIT# → N.ED 16:57 → N.EDINP 20:20 → SUATTDRO 20:20 → N.5E 21:16
PROVIDERS: ADMIT Hospitalist; ATTEND Internal Medicine